=== PATIENT | male | born 1940 | race Caucasian/White ===

== ENCOUNTER → 2017-01-21 | Outpatient (CLI) | payer MEDICARE ==
--- NOTE | 2017-01-21 09:29 | XR ---
EXAMINATION TYPE: XR chest 2V DATE OF EXAM: 01/21/2017 9:25 AM COMPARISON: 02/10/2016 TECHNIQUE: PA and lateral views submitted. HISTORY: Cough FINDINGS: The lungs are clear and there is no pneumothorax, pleural effusion, or focal pneumonia. Postsurgica l changes noted. Heart size is at the upper limits of normal. Arthropathy of the AC joints. Hypertrop hic and degenerative change of the spine. IMPRESSION: 1. No acute process.
== END | disposition home or self-care (01) ==
LOC: RADXRMAIN 09:11
PROVIDERS: ATTEND Internal Medicine
DX: R05 Cough (principal)
CPT/HCPCS: 71020

== ENCOUNTER 2017-08-28 23:32 | Emergency (ER) | payer MEDICARE ==
[2017-08-28 23:42] VITALS: PULSE 94; RESP 18; TEMP 97.5
[2017-08-28] MEDS ORDERED: TOPICAL SKIN ADHESIVE 1 EACH AMP TOPICAL ONE (23:55)
--- NOTE | 2017-08-29 | ED ---
General Adult HPI - General Chief complaint: Wound/Laceration Stated complaint: facial lac Time Seen by Provider: 08/28/17 23:45 Source: patient, RN notes reviewed Mode of arrival: ambulatory Limitations: language barrier - History of Present Illness Initial comments: Patient 76-year-old male who presents emergency room today with a chief complaint of bleeding just below the left eye. He does admit that he had skin tags removed by cutting it off earlier today. He states it has been bleeding since. He does admit that he is on Coumadin. States he had a check last week. Patient denies any other complaints or symptoms. Patient denies any recent fever, chills, shortness of breath, chest pain, abdominal pain, nausea or vomiting, numbness or tingling, headaches or visual changes, or any other complaints. - Related Data Home Medications Medication Instructions Recorded Confirmed Aspirin 81 mg PO DAILY 08/16/14 08/17/14 Latanoprost Ophth [Xalatan 0.005%] 1 drops BOTH EYES HS 08/16/14 08/17/14 Metoprolol Succinate [Toprol XL] 0.5 tab PO BID 08/16/14 08/17/14 Warfarin [Coumadin] 5 mg PO SUTUTHSA 08/16/14 08/16/14 Warfarin [Coumadin] 7.5 mg PO MOWEFR 08/16/14 08/17/14 Allergies Allergy/AdvReac Type Severity Reaction Status Date / Time Penicillins Allergy Unknown Verified 08/28/17 23:42 Review of Systems ROS Statement: Those systems with pertinent positive or pertinent negative responses have been documented in the HPI. ROS Other: All systems not noted in ROS Statement are negative. Past Medical History Past Medical History: Atrial Fibrillation, Cancer, Eye Disorder Additional Past Medical History / Comment(s): SEE DR BAUER'S H&P. REPAIR MITRAL VALVE, ATRIAL VALVE REPLACED 2007. HX CA LARYNX 2006. "PRE-GLAUCOMA" ANT EYES. History of Any Multi-Drug Resistant Organisms: None Reported Additional Past Surgical History / Comment(s): LARYNGECTOMY 2006. MITRAL VALVE REPAIR, ATRIAL VALVE REPLACED 2007. Past Anesthesia/Blood Transfusion Reactions: No Reported Reaction Past Psychological History: No Psychological Hx Reported Smoking Status: Former smoker Past Alcohol Use History: None Reported Past Drug Use History: None Reported - Past Family History Sister(s) Family Medical History: Cancer General Exam - General Exam Comments Initial Comments: General: The patient is awake and alert, in no distress, and does not appear acutely ill. Eye: Pupils are equal, round and reactive to light, extra-ocular movements are intact. No nystagmus. There is normal conjunctiva bilaterally. No signs of icterus. Ears, nose, mouth and throat: There are moist mucous membranes and no oral lesions. Respiratory: Lungs are clear to auscultation, respirations are non-labored, breath sounds are equal. No wheezes, stridor, rales, or rhonchi. Musculoskeletal: Normal ROM, no tenderness. Strength 5/5. Sensation intact. Pulses equal bilaterally 2+. Neurological: A&O x 3. CN II-XII intact, There are no obvious motor or sensory deficits. Coordination appears grossly intact. Speech is normal. Skin: patient does have a 0.5 cm linear laceration just below the left eye. There is some mild venous oozing. Psychiatric: Cooperative, appropriate mood & affect, normal judgment. Limitations: language barrier Course Vital Signs 08/28/17 23:38 Temperature 97.5 F L Pulse Rate 94 Respiratory 18 Rate Blood Pressure 138/92 O2 Sat by Pulse 98 Oximetry Procedures - Procedures Initial comment: patient laceration was cleaned with saline and closed with Dermabond. Patient tolerated procedure well. Medical Decision Making - Medical Decision Making Patient declined having his INR checked here today. He states he had a check last week and was in the twos. Patient did have let applied just beneath the left eye for approximately 20 minutes which did stop the bleeding. Dermabond was then used to close the wound to prevent any rebleeding. Patient will be discharged home. Disposition Clinical Impression: Laceration Disposition: HOME SELF-CARE Condition: Good Instructions: Laceration (ED) Additional Instructions: Please allow glue to follow up on its own over the next 3-5 days. Please return to emergency room if the symptoms increase or worsen or for any other concerns. Referrals: Parish Beck MD [Primary Care Provider] - 1-2 days Time of Disposition: 00:34
[2017-08-29] MEDS ORDERED: LIDOCAINE/EPINEPHR/TETRACAINE 5 ML BOTTLE TOPICAL ONE (00:03)
[2017-08-29 00:56] VITALS: BP 124/87
== END 2017-08-29 00:56 | disposition home or self-care (01) ==
LOC: EC 23:32
DX: S01.81XA Laceration without foreign body of other part of head, initial encounter (principal); Z87.891 Personal history of nicotine dependence; Z79.01 Long term (current) use of anticoagulants; Z79.82 Long term (current) use of aspirin; Z79.899 Other long term (current) drug therapy; Z85.21 Personal history of malignant neoplasm of larynx; Z88.0 Allergy status to penicillin; Z86.69 Personal history of other diseases of the nervous system and sense organs; Z90.02 Acquired absence of larynx; W45.8XXA Other foreign body or object entering through skin, initial encounter; Y93.89 Activity, other specified
CPT/HCPCS: 12011; 99282

== ENCOUNTER → 2017-11-01 | Outpatient (CLI) | payer MEDICARE ==
--- NOTE | 2017-11-01 09:56 | XR ---
EXAMINATION TYPE: XR chest 2V DATE OF EXAM: 11/01/2017 COMPARISON: Prior chest x-ray 09/19/2017 and 09/16/2017 HISTORY: Pneumonia J 18.1, cough R05 TECHNIQUE: Frontal and lateral views of the chest are obtained. FINDINGS: There is interval improved aeration in the left lung. No pneumothorax or pleural effusion. Patient is post median sternotomy. Cardiac mediastinal silhouette, pulmonary vascularity and fran ar e not significantly changed. Some probable scarring present in the right midlung. IMPRESSION: Interval improvement in patient's pneumonia. Cardiomegaly.
== END | disposition home or self-care (01) ==
LOC: RADXRMAIN 09:22
PROVIDERS: ATTEND Internal Medicine
DX: J18.1 Lobar pneumonia, unspecified organism (principal); I51.7 Cardiomegaly
CPT/HCPCS: 71046

== ENCOUNTER → 2023-02-13 | Outpatient (CLI) | payer MEDICARE ==
--- NOTE | 2023-02-13 14:07 | XR ---
EXAMINATION TYPE: XR chest 2V DATE OF EXAM: 02/13/2023 2:00 PM COMPARISON: Chest radiographs from 11/01/2017 TECHNIQUE: XR chest 2V Frontal and lateral views of the chest. CLINICAL INDICATION:Male, 82 years old with history of R07.89; FINDINGS: Lungs/Pleura: Prominent interstitial lung markings are seen scattered throughout the lungs with kerrie ening of the diaphragm and increased lucency of the lung apices. No evidence of focal consolidation, pneumothorax or pleural effusion. Pulmonary vascularity: Unremarkable. Heart/mediastinum: Cardiomediastinal silhouette is unremarkable. Musculoskeletal: No acute osseous pathology. Midline sternotomy wires are noted. IMPRESSION: 1. No acute cardiopulmonary disease process. 2. COPD changes.
== END | disposition home or self-care (01) ==
LOC: RADXRMAIN 13:43
PROVIDERS: ATTEND Internal Medicine
DX: J44.9 Chronic obstructive pulmonary disease, unspecified (principal)
CPT/HCPCS: 71046

== ENCOUNTER → 2023-03-15 | Outpatient (CLI) | payer MEDICARE ==
[2023-03-15 13:56] LABS: African American GFR (CKD) 86 (>60 ml/min/1.73 sqM); Blood Urea Nitrogen 19 mg/dL (9-20); Non-African American GFR(CKD) 74 (>60 ml/min/1.73 sqM)
--- NOTE | 2023-03-15 17:22 | CT ---
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 (accession [id number]), Chest pain. (accession [id number]) TECHNIQUE: Contiguous axial scanning of the chest performed without IV contrast. Subsequent scanning of both the neck and chest performed with IV Contrast, patient injected with 100ml mL of Isovue 300. Coronal/sagittal reconstructions performed. CT DLP: 887.9 (accession [id number]), 431 (accession [id number]) mGycm Automated exposure control for dose reduction was used. FINDINGS: NECK: Visualized intracranial structures and mastoid air cells are clear. Dominant left vertebral artery. Large caliber to the bilateral superior ophthalmic veins nonspecific, may be seen with Valsalva or in creased intercranial pressures. Lobulated mucosal thickening floors of the maxillary sinuses. Nasopharynx is clear. There is circumferential thickening of the mucosal space of the oropharynx. Asymmetric nodular thickening along the right paramedian posterior oropharynx or lingual tonsil regio n, axial image 68. Direct visualization recommended. Epiglottis and prevertebral soft tissues are satisfactory. The patient is status post laryngectomy with a large suprasternal stoma and phonation device extendin g back into the esophagus. The parotid glands are satisfactory. The right submandibular gland is satisfactory. Left submandibula r gland is either atrophic or surgically absent. The right lobe of the thyroid gland is visualized. No cervical lymphadenopathy or suspicious neck mass is identified. Prominent anterior endplate spondylosis throughout the cervical spine with grade 1 anterolisthesis C5 -C6. The bulky anterior spurring impresses onto the back wall of the hypopharynx and cervical esophag us. CHEST: Heart upper limits of normal in size without pericardial effusion. There is dilatation of the right s jorge of the heart with three-vessel coronary artery calcifications which is a marker for coronary jorgito ry disease. Aneurysm ascending aorta at 4.6 cm. Conventional arch vessel branching anatomy. Ectatic upper descend ing thoracic aorta 3.1 cm. Mild aneurysm lower descending thoracic aorta at 3.0 cm. Large caliber to the main right and left pulmonary arteries at 2.7 cm suggesting underlying pulmonary hypertension. A few prominent upper right paratracheal nodes that are borderline to mildly enlarged measuring up to 1.1 cm should be reassessed at follow-up. No other thoracic lymphadenopathy identified. Strandy in bandlike areas of atelectasis/scar in the lower lungs. Mild emphysematous changes noted. M ild bronchial wall thickening. No consolidation or pleural effusion. No suspicious pulmonary nodule i s seen. Tiny hiatal hernia. There is mild perihepatic ascites which should be correlated clinically. Tiny 5 m m gallstone. 1.6 cm cortical cyst right kidney. Bones: Anterior endplate spondylosis/DISH lower thoracic spine. No osseous destructive process. IMPRESSION: NECK: 1. STATUS POST LARYNGECTOMY WITH FORMATION OF A SUPRASTERNAL STOMA AND PHONATION DEVICE WITH THE ESOP HAGUS JUST POSTERIORLY. 2. CIRCUMFERENTIAL THICKENING OF THE OROPHARYNGEAL MUCOSAL SPACE PROBABLY POSTTREATMENT CHANGE. SOME ASYMMETRIC NODULARITY EITHER ALONG THE RIGHT LINGUAL TONSIL OR POSTERIOR RIGHT OROPHARYNGEAL WALL IS NOTED. RECOMMEND DIRECT VISUALIZATION TO EXCLUDE A MUCOSAL LESION HERE. 3. NO SUSPICIOUS CERVICAL LYMPHADENOPATHY OR OTHERWISE ANY NECK MASSES SEEN. CHEST: 4. A CLUSTER OF BORDERLINE ENLARGED UPPER RIGHT PARATRACHEAL NODES MEASURING UP TO 1.1 CM. THESE MAY BE REACTIVE. ATTENTION ON FOLLOW-UP TO EXCLUDE EARLY METASTATIC NODES. 5. 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 ASCENDING AORTIC ANEURYSM AT 4.6 CM. BORDERLINE CARDIOMEGALY WITH CAD. 6. PROMINENT STRANDY AND BANDLIKE AREAS OF SCARRING OR ATELECTASIS IN THE LOWER LUNGS. 7. TINY HIATAL HERNIA. MILD PERIHEPATIC ASCITES FOR WHICH CLINICAL CORRELATION IS RECOMMENDED. CHOLEL ITHIASIS.
== END | disposition home or self-care (01) ==
LOC: RADCTMAIN 13:14
PROVIDERS: ATTEND Internal Medicine
DX: K80.20 Calculus of gallbladder without cholecystitis without obstruction (principal); K44.9 Diaphragmatic hernia without obstruction or gangrene; J43.9 Emphysema, unspecified; I27.21 Secondary pulmonary arterial hypertension; I71.21 Aneurysm of the ascending aorta, without rupture; R07.89 Other chest pain
CPT/HCPCS: 82565; 84520; 70491; 71250; 71260; 36415; Q9967

== ENCOUNTER 2024-05-18 07:27 | Day surgery (SDC) | payer MEDICARE ==
[2024-05-18] MEDS ORDERED: SODIUM CHLORIDE 0.9% 50 ML BAG IV ONE (08:12)
[2024-05-18] MEDS ORDERED: LACTATED RINGERS 1,000 ML BAG ONE (08:12)
[2024-05-18] MEDS ORDERED: ceFAZolin 10 GM VIAL IVPB ONE (08:12)
[2024-05-18] MEDS ORDERED: BUPIVACAINE (PF) 0.25% 30 ML VIAL ONE (08:12)
[2024-05-18] MEDS ORDERED: HEPARIN SODIUM,PORCINE 5,000 UNIT/ML 1 ML VIAL ONE ×2 (08:22)
[2024-05-18] MEDS ORDERED: ACETAMINOPHEN TAB 500 MG TAB ONE ×2 (08:22)
[2024-05-18] MEDS ORDERED: DEXAMETHASONE SOD PHOSPHATE 4 MG/ML 1 ML VIAL ONE ×2 (08:22)
[2024-05-18] MEDS ORDERED: ONDANSETRON 4 MG/2 ML VIAL ONE ×2 (08:23)
[2024-05-18] MEDS ORDERED: LIDOCAINE 1% INJ 10MG/ML (20 ML MDV) ONE (09:22)
[2024-05-18] MEDS ORDERED: MIDAZOLAM 2 MG/2 ML VIAL ONE (09:22)
[2024-05-18] MEDS ORDERED: PROPOFOL 10 MG/ML 20 ML VIAL IV ONE (09:22)
[2024-05-18] MEDS ORDERED: ePHEDrine 50 MG/ML 1 ML VIAL ONE (09:22)
[2024-05-18] MEDS ORDERED: KETAMINE HCL IN 0.9 % NACL 50 MG/5 ML SYRINGE ONE (09:22)
[2024-05-18] MEDS ORDERED: fentaNYL (PF) 50 MCG/ML 2 ML AMP ONE (09:22)
--- NOTE | 2024-05-22 15:56 | OP ---
OPERATIVE REPORT DATE OF SERVICE : PREOPERATIVE DIAGNOSIS: Recurrent right inguinal hernia. POSTOPERATIVE DIAGNOSIS: Recurrent right inguinal hernia. PROCEDURE: Open repair of recurrent right inguinal hernia with mesh. ANESTHESIA: Sedation and local. COMPLICATIONS: None. DESCRIPTION OF PROCEDURE: The patient was brought and placed on the OR table in the supine position. The patient's lower abdomen was prepped and draped sterilely. The previous incision was re- incised after localizing with Marcaine. The subcutaneous tissues were divided using electrocautery. I was able to visualize the external oblique. The patient had more scar tissue from his previous repair in the subcutaneous layers than I had expected. The external oblique was incised sharply. The spermatic cord was carefully dissected and encircled with a Van drain. The patient had a large hernia sac. It was carefully dissected back to the internal inguinal ring. The sac was opened. There was some cloudy whitish-colored fluid within the hernia sac. This did not appear to be a bowel or bladder. I was able to palpate through the defect with my index finger. I was able to palpate normal intraperitoneal structures. I then ligated the hernia sac at the internal inguinal ring using 3 separate 0 silk stick tie sutures. A culture of the cloudy fluid had been taken. The sac was excised and sent to pathology. The patient had a small 5 to 6 mm defect in the direct space. The fat coming out of this small direct hernia was ligated using electrocautery. The defect was closed using a [id number] 0 silk stitch. I then cut a 3-inch x 6-inch Prolene mesh to fit over the exposed floor of the inguinal canal. This was then sutured to the pubic tubercle, folding edge of the inguinal ligament and the conjoint tendon using interrupted 0 Vicryl sutures. A slit was created in the mesh and the mesh was wrapped back around the spermatic cord and sutured back to itself using a 0 silk stitch. Following that, the area was irrigated. No bleeding was seen. The external oblique was reapproximated using a 2-0 Vicryl suture. The subcutaneous layer was closed using 3-0 Vicryl sutures and the skin using a running 4-0 Monocryl suture. Skin glue and sterile dressings were then applied. MMODL / IJN: [id number] /
== END 2024-05-18 13:25 ==
LOC: OR 07:27
PROVIDERS: ATTEND Surgery
DX: K40.91 Unilateral inguinal hernia, without obstruction or gangrene, recurrent (principal); I10 Essential (primary) hypertension; E78.5 Hyperlipidemia, unspecified; I48.91 Unspecified atrial fibrillation; Z85.21 Personal history of malignant neoplasm of larynx; Z88.0 Allergy status to penicillin; Z79.01 Long term (current) use of anticoagulants; Z79.899 Other long term (current) drug therapy
CPT/HCPCS: 88302